=== PATIENT | female | born 1985 | race Caucasian/White ===

== ENCOUNTER 2016-03-24 08:32 | Emergency (ER) | payer OTHER ==
[2016-03-24 08:40] VITALS: BMI 27.4
--- NOTE | 2016-03-24 09:52 | PDOC ---
History of Present Illness - General Chief Complaint: Shortness of Breath Stated Complaint: CHEST PAIN, RT SIDE NUMBNESS Time Seen by Provider: 03/24/16 08:59 History Source: Patient Exam Limitations: No Limitations - History of Present Illness Initial Comments: 03/24/16 09:42 31-year-old female presents to the ED with multiple complaints including decreased appetite, decreased sleep, increased anxiety, bilateral leg pain and chest pressure over the past week intermittently. Patient has history of cervical cancer approximately 2 years ago and underwent chemotherapy but developed a DVT shortly thereafter being placed on subcutaneous injections but completed them about 1 year ago. Patient has now relocated to the [facility] from [place] 10 months ago and has not seen a physician since. Patient still has a Port-A-Cath in her right chest wall and is requesting a referral to a PMD and oncologist here. Patient has no complaints of shortness of breath, palpitations, lower extremity edema, sensory changes to the lower extremities, fever, cough, or weakness Timing/Duration: intermittent Severity: mild, moderate Associated Symptoms: reports: chest pain, loss of appetite. denies: shortness of breath Past History - Past Medical History Allergies/Adverse Reactions: Allergies Allergy/AdvReac Type Severity Reaction Status Date / Time No Known Allergies Allergy Verified 01/07/16 16:21 Home Medications: Ambulatory Orders NK [No Known Home Medication] 01/07/16 Cancer: Yes (Cervical Cancer) Other medical history: rt dvt - Reproductive History Is Patient Now?: No - Psycho/Social/Smoking Cessation Hx Anxiety: No Suicidal Ideation: No Smoking History: Never smoked Have you smoked in the past 12 months: No Information on smoking cessation initiated: No Hx Alcohol Use: No Drug/Substance Use Hx: No Substance Use Type: None Patient Lives Alone: No Review of Systems - Review of Systems Able to Perform ROS?: Yes Constitutional: Yes: Loss of Appetite HEENTM: No: Symptoms Reported Respiratory: No: Symptoms reported Cardiac (ROS): Yes: Chest Pain ABD/GI: Yes: Poor Appetite, Poor Fluid Intake : No: Symptoms Reported Musculoskeletal: Yes: Muscle Pain (bilateral calves) Integumentary: No: Symptoms Reported Neurological: No: Symptoms reported Psychiatric: Yes: Anxiety, Sleep Pattern Change, Change in Appetite Hematologic/Lymphatic: Yes: See HPI, Blood Clots *Physical Exam - Vital Signs Last Vital Signs Temp Pulse Resp BP Pulse Ox 97.8 F 73 18 135/70 98 03/24/16 08:36 03/24/16 08:36 03/24/16 08:36 03/24/16 08:36 03/24/16 09:25 - Physical Exam General Appearance: Yes: Nourished, Appropriately Dressed. No: Apparent Distress HEENT: positive: EOMI, ROCCO. negative: Pale Conjunctivae Neck: positive: Normal Thyroid, Supple Respiratory/Chest: positive: Lungs Clear, Normal Breath Sounds, Other (right single port Port-A-Cath site intact). negative: Respiratory Distress, Accessory Muscle Use Cardiovascular: positive: Regular Rhythm, Regular Rate. negative: Murmur Gastrointestinal/Abdominal: positive: Soft. negative: Tenderness Extremity: positive: Normal Capillary Refill, Normal Inspection, Normal Range of Motion. negative: Pedal Edema, Swelling, Calf Tenderness Integumentary: positive: Normal Color, Warm, Moist Neurologic: positive: Motor Strength 5/5 ( ambulatory) Heart Score/ECG Review - ECG Intrepretation Rhythm: Regular Rhythm (normal sinus rhythm 64, no acute findings) ED Treatment Course - LABORATORY CBC & Chemistry Diagram: 03/24/16 09:37 03/24/16 09:37 - RADIOLOGY Radiology Studies Ordered: Category Date Time Status DUPLEX VASCUL US-2LEGS [US] Stat Ultrasound 03/24/16 09:34 Ordered Medical Decision Making - Medical Decision Making 03/24/16 09:56 Patient with multiple complaints including chest pain, insomnia, decreased appetite, and bilateral lower extremity pain. Pt with history of cervical CVA, with DVT 1 year ago. Pt concerning for ACS/DVT/electrolyte imbalance. patient ordered for cardiac workup and duplex of bilateral lower extremities. 03/24/16 12:21 Laboratory Tests 03/24/16 09:37 Urine Urobilinogen Negative Ur Leukocyte Esterase 3+ H Urine HCG, Qual Negative Laboratory Tests 03/24/16 03/24/16 03/24/16 09:37 09:37 09:37 WBC 5.9 D Hgb 13.2 Hct 38.6 Neutrophils % 49.1 D Sodium 141 Potassium 4.3 Chloride 107 Carbon Dioxide 27 Anion Gap 7 L BUN 14 Creatinine 0.8 Random Glucose 91 Calcium 8.9 Magnesium 2.0 AST 17 ALT 26 D Creatine Kinase 167 Troponin I < 0.02 Lipase 366 Urine WBC 10 patient has no urinary complaints so will send urine culture. Duplex negative for DVT. Patient will be discharged home with referral for PCP and oncologist Dr. Rosa. *DC/Admit/Observation/Transfer Diagnosis at time of Disposition: Anxiety - Discharge Dispostion Disposition: HOME Condition at time of disposition: Good - Referrals Referrals: Scottie Rosa MD [Staff Physician] - Agustin Crain MD [Staff Physician] - - Patient Instructions Printed Discharge Instructions: DI for Anxiety -- Adult Additional Instructions: Please follow up with referred physicians. Please drink plenty of fluids and if your symptoms worsen please return to the ED.
[2016-03-24 09:53] LABS: URINE APPEARANCE CLOUDY; URINE BILIRUBIN NEGATIVE (NEGATIVE); URINE BLOOD NEGATIVE (NEGATIVE); URINE COLOR YELLOW; URINE GLUCOSE (UA) NEGATIVE (NEGATIVE); URINE KETONE NEGATIVE (NEGATIVE); URINE NITRITE NEGATIVE (NEGATIVE); URINE PROTEIN NEGATIVE (NEGATIVE); URINE UROBILINOGEN NEGATIVE E.U./dl (0.2-1.0)
[2016-03-24 09:55] LABS: BASOPHIL 0.5 % (0-2.0); EOSINOPHIL 2.5 % (0-4.5); MCH 30.9 pg (25.7-33.7); MCHC 34.2 g/dl (32.0-36.0); MEAN CELL VOLUME 90.5 fl (80-96); MEAN PLT VOLUME 7.9 fl (7.5-11.1); NEUTROPHILS 49.1 % (42.8-82.8); PLATELET COUNT 198 K/MM3 (134-434); RDW 13.2 % (11.6-15.6); WHITE BLOOD COUNT 5.9 K/mm3 (4.0-10.0)
[2016-03-24 10:08] LABS: URINE LEUK ESTERASE 3+ (NEGATIVE)
[2016-03-24 10:18] LABS: ALBUMIN 3.9 g/dl (3.4-5.0); ANION GAP 7 (8-16); BILIRUBIN,TOTAL 0.3 mg/dL (0.2-1.0); CALCIUM 8.9 mg/dL (8.5-10.1); CO2 27 mmol/L (21-32); CREATININE 0.8 mg/dL (0.55-1.02); GLUCOSE,RANDOM 91 mg/dL (74-106); SGOT/AST 17 U/L (15-37); SGPT/ALT 26 U/L (12-78); TOT PROT 7.2 g/dl (6.4-8.2)
[2016-03-24 10:22] LABS: ALK PHOS 66 U/L (45-117); TROPONIN I < 0.02 ng/ml (0.00-0.05)
[2016-03-24 10:48] LABS: URINE BACTERIA RARE /hpf (NONE SEEN); URINE MUCUS RARE; URINE RBC 5 /hpf (0-3); URINE WBC 10 /hpf (3-5)
[2016-03-24 12:55] VITALS: BP 109/75; PULSE 69; TEMP 98.1
--- NOTE | 2016-03-24 23:18 | EKG ---
Test Reason : Blood Pressure : / mmHG Vent. Rate : 064 BPM Atrial Rate : 064 BPM P-R Int : 156 ms QRS Dur : 084 ms QT Int : 412 ms P-R-T Axes : 025 018 031 degrees QTc Int : 425 ms NORMAL SINUS RHYTHM NORMAL ECG WHEN COMPARED WITH ECG OF 07-JAN-2016 16:21, NO SIGNIFICANT CHANGE WAS FOUND Confirmed by MARIAM COON MD ([id number]) on 03/24/2016 11:18:23 PM Referred By: Confirmed By:MARIAM COON MD
--- NOTE | 2016-03-31 17:50 | EKG ---
Test Reason : Blood Pressure : / mmHG Vent. Rate : 062 BPM Atrial Rate : 062 BPM P-R Int : 170 ms QRS Dur : 082 ms QT Int : 410 ms P-R-T Axes : 024 022 032 degrees QTc Int : 416 ms NORMAL SINUS RHYTHM NORMAL ECG WHEN COMPARED WITH ECG OF 24-MAR-2016 08:56, NO SIGNIFICANT CHANGE WAS FOUND Confirmed by MARIAM COON MD ([id number]) on 03/31/2016 5:50:02 PM Referred By: Confirmed By:MARIAM COON MD
== END 2016-03-24 12:56 | disposition home or self-care (01) ==
LOC: JER 08:32
DX: F41.9 Anxiety disorder, unspecified (principal)
CPT/HCPCS: 36415; 80053; 81003; 81015; 82550; 82553; 83690; 83735; 84484; 84703; 85025; 87086; 93005; 93010; 93970-TC; 99284-25

== ENCOUNTER 2016-07-28 20:27 | Emergency (ER) | payer OTHER ==
[2016-07-28 20:36] VITALS: BP 111/31; PULSE 84; TEMP 98.2; BMI 28.3
[2016-07-28] MEDS ORDERED: KETOROLAC TROMETHAMINE 60 MG/2 ML VIAL IM ONE (21:44)
--- NOTE | 2016-07-28 21:44 | PDOC ---
History of Present Illness - History of Present Illness Initial Comments: 07/28/16 21:35 CHIEF COMPLAINT: right leg pain HISTORY OF PRESENT ILLNESS: 31 yo F with hx of cervical cancer s/p radiation and chemotherapy presents to [facility] track with right sided hip and leg pain x "half a year." Patient describes the pain as cramping and worse when she walks. Patient denies any use of OCPs, denies any smoking. No recent travel or sick contacts. PAST MEDICAL HISTORY: cervical cancer s/p radiation/chemo FAMILY HISTORY: Denies SOCIAL HISTORY: Denies tobacco, alcohol, illicit drug use. SURGICAL HISTORY: Denies ALLERGIES: No known drug allergies REVIEW OF SYSTEMS General/Constitutional: Denies fever or chills. Denies weakness, weight change. HEENT: Denies change in vision. Denies ear pain or discharge. Denies sore throat. Cardiovascular: Denies chest pain or shortness of breath. Respiratory: Denies cough, wheezing, or hemoptysis. Gastrointestinal: Denies nausea, vomiting, diarrhea or constipation. Denies rectal bleeding. Genitourinary: Denies dysuria, frequency, or change in urination. Musculoskeletal: Cramping leg pain. Denies joint or muscle swelling or pain. Denies neck or back pain. Skin and breasts: Denies rash or easy bruising. Neurologic: Denies headache, vertigo, loss of consciousness, or loss of sensation. PHYSICAL EXAM General Appearance: Well-appearing, appropriately dressed. No apparent distress. HEENT: EOMI, PERRLA. No conjunctival pallor. No photophobia, scleral icterus. Respiratory/Chest: Lungs CTAB. Cardiovascular: RRR. S1, S2. Gastrointestinal/Abdominal: Normal bowel sounds. Abdomen soft, non-distended. No tenderness or rebound tenderness. No organomegaly, pulsatile mass, guarding , hernia, hepatomegaly, splenomegaly. Pelvic: External genitalia normal without lesions. Vaginal vault is clear without blood or discharge. Cervix is long and closed. No cervical motion tenderness. Uterus is nontender and normal in size. Adnexa are nontender and without masses. Lymphatic: No adenopathy, tenderness. Musculoskeletal/Extremities: Reproducible tenderness to R hip and thigh. No swelling, erythema, warmth. FROM of all extremities, normal capillary refill. Pelvis Stable. No CVA tenderness. No tenderness to extremities, pedal edema, swelling, erythema or deformity. Integumentary: Appropriate color, dry, warm. No cyanosis, erythema, jaundice or rash Neurologic: grade tamper II-XII intact. Fully oriented, alert. Appropriate mood/affect. Motor strength 5/5. No appreciable EOM palsy, facial droop or sensory deficit. <Trini Parisi - Last Filed: 07/28/16 22:12> <Catrina Vasquez - Last Filed: 07/29/16 02:01> - General Chief Complaint: Pain Stated Complaint: LEG PAIN Time Seen by Provider: 07/28/16 21:15 Past History - Past Medical History Cancer: Yes (Cervical Cancer) - Psycho/Social/Smoking Cessation Hx Anxiety: No Suicidal Ideation: No Smoking History: Never smoked Have you smoked in the past 12 months: No Information on smoking cessation initiated: No Hx Alcohol Use: No Drug/Substance Use Hx: No Substance Use Type: None <Trini Parisi - Last Filed: 07/28/16 22:12> <Catrina Vasquez - Last Filed: 07/29/16 02:01> - Past Medical History Allergies/Adverse Reactions: Allergies Allergy/AdvReac Type Severity Reaction Status Date / Time No Known Allergies Allergy Verified 07/28/16 20:32 Home Medications: Ambulatory Orders NK [No Known Home Medication] 01/07/16 *Physical Exam - Vital Signs Last Vital Signs Temp Pulse Resp BP Pulse Ox 98.2 F 84 18 111/31 98 07/28/16 20:33 07/28/16 20:33 07/28/16 20:33 07/28/16 20:33 07/28/16 20:33 <Trini Parisi - Last Filed: 07/28/16 22:12> - Vital Signs Last Vital Signs Temp Pulse Resp BP Pulse Ox 98.2 F 84 18 111/31 98 07/28/16 20:33 07/28/16 20:33 07/28/16 20:33 07/28/16 20:33 07/28/16 20:33 <Catrina Vasquez - Last Filed: 07/29/16 02:01> ED Treatment Course - ADDITIONAL ORDERS Additional order review: Laboratory Results 07/28/16 21:22 Urine HCG, Qual Negative - Medications Given in the ED: ED Medications Discontinued Medications Generic Name Dose Route Start Last Admin Trade Name Freq PRN Reason Stop Dose Admin Ketorolac Tromethamine 60 mg 07/28/16 21:44 07/28/16 22:11 Toradol Injection - IM 07/28/16 21:45 60 mg ONCE ONE Administration <Catrina Vasquez - Last Filed: 07/29/16 02:01> Medical Decision Making - Medical Decision Making 07/28/16 22:09 31 yo F with hx of "abdominal tumor" s/p radiation therapy presents to fast track with right sided hip and leg pain x "half a year." -Upreg -60 mg Toradol IM Will transfer to main ED for further evaluation. <Trini Parisi - Last Filed: 07/28/16 22:12> - Medical Decision Making 07/29/16 02:00 duplex doppler of right leg was negative for any DVT ,pt given a copy of her ultrasound report and will follow up with her primary physician <Catrina Vasquez - Last Filed: 07/29/16 02:01> *DC/Admit/Observation/Transfer <Trini Parisi - Last Filed: 07/28/16 22:12> <Catrina Vasquez - Last Filed: 07/29/16 02:01> Diagnosis at time of Disposition: Leg pain Qualifiers: Laterality: right Qualified Code(s): M79.604 - Pain in right leg - Discharge Dispostion Disposition: HOME Condition at time of disposition: Stable - Patient Instructions Printed Discharge Instructions: DI for Leg Pain Additional Instructions: please followup with your regular physician
[2016-07-28] MEDS ORDERED: KETOROLAC TROMETHAMINE 60 MG/2 ML VIAL ONE (22:00)
== END 2016-07-28 23:47 | disposition home or self-care (01) ==
LOC: JER 20:27
PROC: 3E0233Z Introduction of Anti-inflammatory into Muscle, Percutaneous Approach (ICD-10-PCS; principal; 2016-07-28)
DX: M79.604 Pain in right leg (principal)
CPT/HCPCS: 84703; 93971-TC; 96372; 99281-25

== ENCOUNTER 2016-08-16 08:20 | Emergency (ER) | payer OTHER ==
[2016-08-16] MEDS ORDERED: SODIUM CHLORIDE 1,000 ML IV STA (08:26)
[2016-08-16 08:27] VITALS: TEMP 98.1; BMI 28.3
[2016-08-16] MEDS ORDERED: morphine CARPU-JECT 4 MG/1 ML DISP.SYRIN IVPUSH ONE ×2 (08:28→13:29)
[2016-08-16] MEDS ORDERED: ONDANSETRON 4 MG/2 ML VIAL IVPUSH ONE (08:28)
[2016-08-16] MEDS ORDERED: ONDANSETRON 4 MG/2 ML VIAL ONE (08:45)
[2016-08-16] MEDS ORDERED: morphine CARPU-JECT 2 MG/1 ML DISP.SYRIN ONE ×2 (08:45→13:32)
--- NOTE | 2016-08-16 08:45 | PDOC ---
History of Present Illness - General Chief Complaint: Pain Stated Complaint: ABDOMINAL PAIN Time Seen by Provider: 08/16/16 08:25 History Source: Patient - History of Present Illness Timing/Duration: reports: constant, getting worse Quality: reports: severe Pain Radiation: reports: RUQ, LUQ, RLQ Past History - Past Medical History Allergies/Adverse Reactions: Allergies Allergy/AdvReac Type Severity Reaction Status Date / Time No Known Allergies Allergy Verified 08/16/16 08:25 Home Medications: Ambulatory Orders Ciprofloxacin HCl [Cipro] 500 mg PO BID #14 tablet 08/16/16 Metronidazole [Flagyl -] 500 mg PO Q8H #21 tablet 08/16/16 Tramadol HCl 50 mg PO Q6H #20 tablet MDD 200 mg 08/16/16 Cancer: Yes (Cervical Cancer) - Psycho/Social/Smoking Cessation Hx Anxiety: No Suicidal Ideation: No Smoking History: Never smoked Have you smoked in the past 12 months: No Information on smoking cessation initiated: No Hx Alcohol Use: No Drug/Substance Use Hx: No Substance Use Type: None Review of Systems - Review of Systems Constitutional: No: Chills, Fever Respiratory: No: Shortness of Breath Cardiac (ROS): No: Chest Pain ABD/GI: Yes: Nausea. No: Vomiting : Yes: Flank Pain. No: Dysuria, Hematuria Musculoskeletal: No: Back Pain *Physical Exam - Vital Signs Last Vital Signs Temp Pulse Resp BP Pulse Ox 98.1 F 84 18 102/71 100 08/16/16 08:25 08/16/16 08:25 08/16/16 08:25 08/16/16 08:25 08/16/16 08:25 - Physical Exam General Appearance: Yes: Appropriately Dressed, Moderate Distress HEENT: positive: Normal Voice Neck: positive: Supple Respiratory/Chest: positive: Lungs Clear, Normal Breath Sounds. negative: Respiratory Distress Cardiovascular: positive: Regular Rate, S1, S2 Gastrointestinal/Abdominal: positive: Normal Bowel Sounds, Tender (to RUQ/RLQ and LUQ), Soft. negative: Distended, Guarding, Rebound Musculoskeletal: negative: CVA Tenderness Integumentary: positive: Dry, Warm Neurologic: positive: Fully Oriented, Alert, Normal Mood/Affect ED Treatment Course - LABORATORY CBC & Chemistry Diagram: 08/16/16 09:00 08/16/16 09:00 Medical Decision Making - Medical Decision Making 08/16/16 08:31 31 yo F, history of cervical cancer status post radiation and chemotherapy in [place] 2 years ago, DVT, no longer on blood thinners, status post surgery for ectopic and ruptured hemorrhagic cyst, presents with severe pain in the left upper quadrant that started at 1 AM today and has since worsened and now radiates to RUQ and RLQ. Also reports nausea, no vomiting, change in BM, dysuria , hematuria, abnl vag bleed, f/c. No h/o renal stone see exam Severe abd pain this am Diffuse ttp but most notably to L flank R/o renal colic vs yaneli vs appy -pain control -zofran -IVF -labs -?CT vs US 08/16/16 08:48 08/16/16 12:18 Enterocolitis to distal small bowel and distal sigmoid on CT, ?infxn vs inflam vs radiation related. Pt has no neutropenia or fever to suggest typhlitis at this time. Labs wnl. Pt reports feeling sig better. Offered admission or at least OBs stay which pt declines as she is feeling better and states she would prefer to go home with po abx. Will give dose of IV in ED and po challenge prior to discharge 08/16/16 13:21 08/16/16 13:34 08/16/16 16:11 08/16/16 17:01 Pt s/p IV abx and feels well. Able to xander po. Stable for discharge w/ strict return precautions *DC/Admit/Observation/Transfer Diagnosis at time of Disposition: Enterocolitis - Discharge Dispostion Disposition: HOME Condition at time of disposition: Improved - Prescriptions Prescriptions: Ciprofloxacin HCl [Cipro] 500 mg PO BID #14 tablet Metronidazole [Flagyl -] 500 mg PO Q8H #21 tablet Tramadol HCl 50 mg PO Q6H #20 tablet MDD 200 mg - Referrals Referrals: Roderick Vicente MD [Staff Physician] - - Patient Instructions Printed Discharge Instructions: DI for Colitis Additional Instructions: Take medications as directed and return to ER immediately for worsening of symptoms. Follow-up with Dr. Vicente in clinic Print Language: CROATIAN
[2016-08-16 09:04] VITALS: BP 119/84; PULSE 87
[2016-08-16] MEDS ORDERED: KETOROLAC TROMETHAMINE 30 MG/1 ML VIAL IVPUSH ONE (09:04)
[2016-08-16] MEDS ORDERED: KETOROLAC TROMETHAMINE 30 MG/1 ML VIAL ONE (09:06)
[2016-08-16 09:10] LABS: BASOPHIL 0.5 % (0-2.0); EOSINOPHIL 1.6 % (0-4.5); MCH 30.8 pg (25.7-33.7); MCHC 34.5 g/dl (32.0-36.0); MEAN CELL VOLUME 89.3 fl (80-96); NEUTROPHILS 62.7 % (42.8-82.8); PLATELET COUNT 179 K/MM3 (134-434); RDW 13.1 % (11.6-15.6); WHITE BLOOD COUNT 7.8 K/mm3 (4.0-10.0)
[2016-08-16 09:21] LABS: URINE APPEARANCE CLOUDY; URINE BILIRUBIN NEGATIVE (NEGATIVE); URINE BLOOD NEGATIVE (NEGATIVE); URINE COLOR YELLOW; URINE GLUCOSE (UA) NEGATIVE (NEGATIVE); URINE KETONE NEGATIVE (NEGATIVE); URINE NITRITE NEGATIVE (NEGATIVE); URINE PROTEIN NEGATIVE (NEGATIVE); URINE UROBILINOGEN NEGATIVE E.U./dl (0.2-1.0)
[2016-08-16 09:31] LABS: ALBUMIN 3.9 g/dl (3.4-5.0); ALK PHOS 70 U/L (45-117); ANION GAP 8 (8-16); BILIRUBIN,TOTAL 0.3 mg/dL (0.2-1.0); CALCIUM 8.7 mg/dL (8.5-10.1); CO2 26 mmol/L (21-32); CREATININE 0.9 mg/dL (0.55-1.02); GLUCOSE,RANDOM 105 mg/dL (74-106); SGOT/AST 17 U/L (15-37); SGPT/ALT 28 U/L (12-78); TOT PROT 7.3 g/dl (6.4-8.2)
[2016-08-16 09:32] LABS: URINE LEUK ESTERASE 1+ (NEGATIVE)
[2016-08-16 09:33] LABS: URINE BACTERIA RARE /hpf (NONE SEEN); URINE MUCUS RARE; URINE RBC 1 /hpf (0-3); URINE WBC 5 /hpf (3-5)
[2016-08-16] MEDS ORDERED: METRONIDAZOLE 500 MG PREMIXED 100 ML IVPB ONE ×2 (13:03→13:32)
[2016-08-16] MEDS ORDERED: CEFEPIME HCL 2 GM VIAL (RESTRICTED TO ID) IVPB ONE (13:03)
[2016-08-16] MEDS ORDERED: CEFEPIME 2 GM in DEXTROSE 5%-WATER - 100 ML IVPB ONE (16:00)
== END 2016-08-16 17:28 | disposition home or self-care (01) ==
LOC: JER 08:20
PROC: 3E03329 Introduction of Other Anti-infective into Peripheral Vein, Percutaneous Approach (ICD-10-PCS; principal; 2016-08-16)
PROC: 3E03329 Introduction of Other Anti-infective into Peripheral Vein, Percutaneous Approach (ICD-10-PCS; 2016-08-16)
PROC: 3E033NZ Introduction of Analgesics, Hypnotics, Sedatives into Peripheral Vein, Percutaneous Approach (ICD-10-PCS; 2016-08-16)
PROC: 3E0333Z Introduction of Anti-inflammatory into Peripheral Vein, Percutaneous Approach (ICD-10-PCS; 2016-08-16)
PROC: 3E033GC Introduction of Other Therapeutic Substance into Peripheral Vein, Percutaneous Approach (ICD-10-PCS; 2016-08-16)
DX: K52.9 Noninfective gastroenteritis and colitis, unspecified (principal); R11.0 Nausea
CPT/HCPCS: 36415; 74177-TC; 80053; 81003; 81015; 83690; 84703; 85025; 86850; 86900; 86901; 96365; 96367; 96374; 96375; 99282-25

== ENCOUNTER → 2016-09-21 | Emergency (ER) | payer OTHER ==
[~2016-09-21] MED LIST: SODIUM CHLORIDE 1,000 ML IV ONE
[2016-09-21 11:52] VITALS: BMI 30.1
[2016-09-21 13:17] LABS: BASOPHIL 0.4 % (0-2.0); EOSINOPHIL 1.1 % (0-4.5); MCH 30.8 pg (25.7-33.7); MCHC 34.4 g/dl (32.0-36.0); MEAN CELL VOLUME 89.5 fl (80-96); MEAN PLT VOLUME 7.9 fl (7.5-11.1); NEUTROPHILS 66.6 % (42.8-82.8); PLATELET COUNT 185 K/MM3 (134-434); RDW 13.3 % (11.6-15.6); URINE APPEARANCE CLEAR; URINE BILIRUBIN NEGATIVE (NEGATIVE); URINE BLOOD NEGATIVE (NEGATIVE); URINE COLOR LTYELLOW; URINE GLUCOSE (UA) NEGATIVE (NEGATIVE); URINE KETONE NEGATIVE (NEGATIVE); URINE LEUK ESTERASE NEGATIVE (NEGATIVE); URINE NITRITE NEGATIVE (NEGATIVE); URINE PROTEIN NEGATIVE (NEGATIVE); URINE UROBILINOGEN NEGATIVE mg/dL (0.2-1.0); WHITE BLOOD COUNT 5.9 K/mm3 (4.0-10.0)
[2016-09-21 13:40] LABS: ALK PHOS 71 U/L (45-117); ANION GAP 8 (8-16); BILIRUBIN,TOTAL 0.4 mg/dL (0.2-1.0); CALCIUM 8.9 mg/dL (8.5-10.1); CO2 27 mmol/L (21-32); CREATININE 0.9 mg/dL (0.55-1.02); GLUCOSE,RANDOM 124 mg/dL (74-106); SGOT/AST 15 U/L (15-37); SGPT/ALT 27 U/L (12-78)
--- NOTE | 2016-09-21 14:17 | PDOC ---
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 Patient was having an emotional conversation, developed palpitations with chest tightness and throat closing sensation and lightheadedness. The episode lasted 30-45 minutes, now resolved. In route, patient did have an episode of fecal incontinence, she denied any back pain or other neurological issues. At baseline has unlimited exercise tolerance, but yesterday noted some right upper quadrant/right chest discomfort with ambulating and it has also since been positional, not necessarily exertional. No cough or fevers or shortness of breath. No history of panic attacks. - Physicial Exam PE: 09/21/16 14:13 Vital signs stable, heart rate 100 at triage but currently 70s lying in stretcher. No acute distress, speaking full sentences. Cardiopulmonary exam is normal abd benign, no masses neuro intact, full strength x4 mood appropriate - Medical Decision Making 09/21/16 14:18 Patient seen and evaluated with the resident. 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 Presentation does seem most consistent with a panic attack, given her history of malignancy and unknown current status (has not had evaluation since her chemotherapy finished 21 months ago), would rule out PE in light of the register tachycardia at triage. Check labs including troponin CTA chest Symptoms have resolved, no need for anxiolytic at this time Reassess 09/21/16 17:04 w/u negative including PE. likely panic attack, remains asx and well appearing, agrees with d/c plan, understands return criteria.
[2016-09-21 14:34] LABS: CPK 156 IU/L (26-192); TROPONIN I < 0.02 ng/ml (0.00-0.05)
--- NOTE | 2016-09-21 17:05 | PDOC ---
History of Present Illness - General Chief Complaint: Shortness of Breath Stated Complaint: SOB Time Seen by Provider: 09/21/16 12:19 - History of Present Illness Initial Comments: 09/21/16 17:20 31 yo F with h/o ovarian ca. s/p radiation and chemo, and recent dx. of enterocolitis who presents with SOB. Pt. reports episode of SOB, SUAREZ, and confusion 90 minutes prior to arrival. She states that she was sitting down and arguing with her spouse when she started to develop diffuse chest pain/ tightness and asx. symptoms. She denies cough, hemoptysis, fevers/chills, N/V, vision change, syncope, palpitations, abdominal complaints, or urinary complaints. Denies medication use. Denies recent traveling, extended traveling, or OCP use. Denies alcohol or illicit drug use. Past History - Past Medical History Allergies/Adverse Reactions: Allergies Allergy/AdvReac Type Severity Reaction Status Date / Time No Known Allergies Allergy Verified 09/21/16 11:58 Cancer: Yes (Cervical Cancer) - Psycho/Social/Smoking Cessation Hx Anxiety: No Suicidal Ideation: No Smoking History: Never smoked Have you smoked in the past 12 months: No Information on smoking cessation initiated: No Hx Alcohol Use: No Drug/Substance Use Hx: No Substance Use Type: None Review of Systems - Review of Systems Comments:: 09/21/16 18:00 GENERAL/CONSTITUTIONAL: No fever or chills. No weakness. HEAD, EYES, EARS, NOSE AND THROAT: No change in vision. No ear pain or discharge. No sore throat. CARDIOVASCULAR: No chest pain or shortness of breath RESPIRATORY: No cough, wheezing, or hemoptysis. GASTROINTESTINAL: No nausea, vomiting, diarrhea or constipation. GENITOURINARY: No dysuria, frequency, or change in urination. MUSCULOSKELETAL: No joint or muscle swelling or pain. No neck or back pain. SKIN: No rash NEUROLOGIC:+ headache. No vertigo, loss of consciousness, or change in strength/sensation. ENDOCRINE: No increased thirst. No abnormal weight change HEMATOLOGIC/LYMPHATIC: No anemia, easy bleeding, or history of blood clots. ALLERGIC/IMMUNOLOGIC: No hives or skin allergy. 09/21/16 18:00 *Physical Exam - Vital Signs Last Vital Signs Temp Pulse Resp BP Pulse Ox 98.4 F 100 H 20 121/84 99 09/21/16 11:48 09/21/16 11:48 09/21/16 11:48 09/21/16 11:48 09/21/16 11:53 - Physical Exam Comments: 09/21/16 18:01 GENERAL: Awake, alert, and fully oriented, in no acute distress HEAD: No signs of trauma, normocephalic, atraumatic EYES: PERRLA, EOMI, sclera anicteric, conjunctiva clear ENT: Auricles normal inspection, hearing grossly normal, nares patent, oropharynx clear without exudates. Moist mucosa NECK: Normal ROM, supple, no lymphadenopathy, JVD, or masses LUNGS: No distress, speaks full sentences, clear to auscultation bilaterally HEART: Regular rate and rhythm, normal S1 and S2, no murmurs, rubs or gallops, peripheral pulses normal and equal bilaterally. ABDOMEN: + RUQ tenderness. Soft, normoactive bowel sounds. No guarding, no rebound. No masses EXTREMITIES: Normal inspection, Normal range of motion, no edema. No clubbing or cyanosis. NEUROLOGICAL: Cranial nerves II through XII grossly intact. Normal speech, normal gait, no focal sensorimotor deficits SKIN: Warm, Dry, normal turgor, no rashes or lesions noted. Heart Score/ECG Review - Electrocardiogram EKG: Normal - ECG Intrepretation Rhythm: Regular Rhythm - [place]: Normal - P and IL Prominent R with upright T in V1 (true posterior ID): No Delta Wave(s) Present: No WPW: No - QRS Poor R Wave Progression: No Q Wave Present: No - ST and T Early Repolarization: No Non Specific ST-T Wave changes: No - ECG Impressions Normal ECG: Yes ED Treatment Course - LABORATORY CBC & Chemistry Diagram: 09/21/16 13:10 09/21/16 13:10 - ADDITIONAL ORDERS Additional order review: Laboratory Results 09/21/16 09/21/16 13:10 13:10 Sodium 140 Potassium 3.7 Chloride 105 Carbon Dioxide 27 Anion Gap 8 BUN 16 Creatinine 0.9 Creat Clearance w eGFR > 60 Random Glucose 124 H Calcium 8.9 Total Bilirubin 0.4 D AST 15 ALT 27 Alkaline Phosphatase 71 Creatine Kinase 156 Creatine Kinase Index 0.6 CK-MB (CK-2) < 1.000 Troponin I < 0.02 Total Protein 7.0 Albumin 4.0 Lipase 193 Urine Color Ltyellow Urine Appearance Clear Urine pH 5.0 Urine Protein Negative Urine Glucose (UA) Negative Urine Ketones Negative Urine Blood Negative Urine Nitrite Negative Urine Bilirubin Negative Urine Urobilinogen Negative Ur Leukocyte Esterase Negative Urine HCG, Qual Negative 09/21/16 13:10 RBC 4.39 MCV 89.5 MCHC 34.4 RDW 13.3 MPV 7.9 Neutrophils % 66.6 Lymphocytes % 24.6 Monocytes % 7.3 Eosinophils % 1.1 Basophils % 0.4 - RADIOLOGY Radiology Studies Ordered: Category Date Time Status ABDOMEN US -LIMITED [US] Stat Ultrasound 09/21/16 12:55 Completed Radiograph Interpretation: 09/21/16 18:12 Za Eisenberg Name: MARI[facility] DEPARTMENT OF RADIOLOGY Phys: Jesse Fenton MD : 1985 Age: 31 Sex: F [facility] Acct: [id number] Loc: [address] Exam Date: 09/21/16 Status: [facility] [place] [address] Unit Number: [id number] EXAM#: TYPE/EXAM: RESULT: [id number] CT/CHEST CTA Shortness of breath. Chest pain. CT scan of the chest following intravenous contrast. A post intravenous contrast CT angiogram of the chest was performed utilizing pulmonary embolus protocol. Coronal/ sagittal reconstruction images were obtained. 95 cc of Omnipaque 350 was intravenously injected Compared to prior CT scan of the chest dated 01/07/2016 No gross filling defect is seen within the main pulmonary artery and its proximal branches. The thoracic and visualized portion of the upper abdominal aorta is normally enhanced without evidence of aneurysmal dilatation or dissection. The heart is within normal limits in size. No gross mediastinal or hilar enlarged lymph nodes are identified. Previously visualized approximately 6 mm pulmonary nodule in the right lower lobe, laterally is again seen without interval change. The rest of the lung is clear. No pneumothorax or pleural effusion are identified. Included portion of the upper abdomen appears unremarkable with heterogeneous enhancement of the spleen likely due to rapid intravenous contrast injection. Visualized osseous structures appear intact IMPRESSION: Stable examination without gross interval change. There is no gross evidence of a pulmonary embolus within the main pulmonary artery and its proximal branches, bilaterally. Stable approximately 6 mm right lower lobe pulmonary nodule without interval change. 09/21/16 18:14 Za Eisenberg Name: WILLIAMSMARIAA DEPARTMENT OF RADIOLOGY Phys: CesarAlexander RESIDENT : 1985 Age: 31 Sex: F [facility] Acct: [id number] Loc: [facility] [facility] Exam Date: 09/21/16 Status: [facility] [id number] Unit Number: [id number] EXAM#: TYPE/EXAM: RESULT: [id number] US/ABDOMEN US -LIMITED HISTORY PROVIDED: Right upper quadrant pain. Real time examination of the abdomen demonstrates the following: The gallbladder is largely contracted. No calculi are identified. There is no evidence of intra or extrahepatic biliary duct dilatation. The liver is normal in size. It is hyperechoic in texture consistent with diffuse fatty infiltration. No discrete intrahepatic masses are identified. The pancreas is normal in size and texture with no pancreatic masses identified. There is no evidence of hydronephrosis or acute abnormalities of the right kidney. There is no evidence of AAA. The IVC is patent. IMPRESSION: 1. Contracted gallbladder with no evidence of cholelithiasis. 2. Mild diffuse fatty infiltration of the liver. - Medications Given in the ED: ED Medications Discontinued Medications Generic Name Dose Route Start Last Admin Trade Name Freq PRN Reason Stop Dose Admin Sodium Chloride 1,000 mls @ 1,000 mls/hr 09/21/16 13:48 09/21/16 14:44 Normal Saline - IV 09/21/16 14:47 1,000 mls/hr ONCE ONE Administration Medical Decision Making - Medical Decision Making 31 yo F with h/o ovarian ca. s/p chemo/radiation who presents with SOB. Pt. reports SOB, chest tightness, SUAREZ, lightheadedness, and confusion following argument with spouse. Pt. is moderate risk of PE given recent h/o cancer, and symptomatology, despite hemodynamic stability. Pt. is non toxic appearing with low suspicion for pneumonia and benign pulmonary exam. Low cardiac risk factors. DDx: Panic attack , PE, pneumonia, ACS/ID, Syncope ED Course: CTA: Stable examination without gross interval change. There is no gross evidence of a pulmonary embolus within the main pulmonary artery and its proximal branches, bilaterally. Stable approximately 6 mm right lower lobe pulmonary nodule without interval change. 09/21/16 18:15 RUQ U/S: 1. Contracted gallbladder with no evidence of cholelithiasis. 2. Mild diffuse fatty infiltration of the liver. EKG : Unremarkable 09/21/16 18:17 CBC, CMP,UA: unremarkable NS 1L *DC/Admit/Observation/Transfer Diagnosis at time of Disposition: Shortness of breath, Panic attack - Discharge Dispostion Disposition: HOME Condition at time of disposition: Improved Admit: No - Referrals Referrals: Alysa Ellis [Primary Care Provider] - Waqar Storm MD [Staff Physician] - - Patient Instructions Printed Discharge Instructions: Anxiety and Panic Attacks (Alternative Therapy) , DI for Panic Disorder Additional Instructions: Return to ED if you experience any worsening symptoms, fainting, fevers/chills, severe abdominal pain. Please follow up with your primary care provider Print Language: TURKMEN - Attestations Physician Attestion: 09/21/16 17:03 I, Dr. Alexander Guerrero, attest that this document has been prepared under my direction and personally reviewed by me in its entirety. I further attest, that it accurately reflects all work, treatment, procedures and medical decision -making performed by me.
--- NOTE | 2016-09-21 17:43 | EKG ---
Test Reason : Blood Pressure : / mmHG Vent. Rate : 060 BPM Atrial Rate : 060 BPM P-R Int : 154 ms QRS Dur : 082 ms QT Int : 406 ms P-R-T Axes : 024 027 035 degrees QTc Int : 406 ms NORMAL SINUS RHYTHM NORMAL ECG WHEN COMPARED WITH ECG OF 24-MAR-2016 10:34, NO SIGNIFICANT CHANGE WAS FOUND Confirmed by MARIAM COON MD ([id number]) on 09/21/2016 5:43:06 PM Referred By: Confirmed By:MARIAM COON MD
[2016-09-21 18:07] VITALS: BP 121/72; PULSE 78; TEMP 98.7
== END | disposition home or self-care (01) ==
LOC: JER 11:43
PROC: 3E0337Z Introduction of Electrolytic and Water Balance Substance into Peripheral Vein, Percutaneous Approach (ICD-10-PCS; principal; 2016-09-21)
DX: F41.0 Panic disorder [episodic paroxysmal anxiety] (principal); Z85.43 Personal history of malignant neoplasm of ovary
CPT/HCPCS: 36415; 71275-TC; 76705-TC; 80053; 81003; 83690; 84484; 84703; 85025; 93005; 93010; 96360; 99283-25

== ENCOUNTER 2017-01-11 09:18 | Emergency (ER) | payer OTHER ==
--- NOTE | 2017-01-11 09:28 | PDOC ---
History of Present Illness - General History Source: Patient Exam Limitations: No Limitations - History of Present Illness Initial Comments: 01/11/17 09:57 The patient is a 31 year old female with a significant PMH of ovarian cancer s/ p radiation & chemotherapy and recent enterocolitis who presents to the emergency department with 1 month of worsening flank pain and 1 day of rectal bleeding. The patient describes the flank pain as a sharp pain intermittently localized in the right flank. She reports her flank pain is aggravated by torso movement or deep inspiration. The patient reports her flank pain has become significantly worse over the past 3 days. She notes associated rectal bleeding beginning yesterday and endorse multiple episodes of rectal bleeding since then. The patient denies chest pain, shortness of breath, headache and dizziness. Denies fever, chills, nausea, vomit, diarrhea and constipation. Denies dysuria, frequency, urgency and hematuria. Allergies: NKA Past surgical history: None reported. Social history: No reported cigarette, alcohol, or drug use. <Vlad Sahu - Last Filed: 01/11/17 10:20> <Valencia Hernandez - Last Filed: 01/11/17 14:31> - General Chief Complaint: Pain, Acute Stated Complaint: ABD PAIN Time Seen by Provider: 01/11/17 09:27 Past History <Vlad Sahu - Last Filed: 01/11/17 10:20> - Past Medical History Cancer: Yes (Cervical Cancer) - Suicide/Smoking/Psychosocial Hx Smoking History: Never smoked Have you smoked in the past 12 months: No Hx Alcohol Use: No Drug/Substance Use Hx: No Substance Use Type: None <Valencia Hernandez - Last Filed: 01/11/17 14:31> - Past Medical History Allergies/Adverse Reactions: Allergies Allergy/AdvReac Type Severity Reaction Status Date / Time No Known Allergies Allergy Verified 01/11/17 09:51 Review of Systems - Review of Systems Able to Perform ROS?: Yes Comments:: 01/11/17 09:58 GENERAL/CONSTITUTIONAL: No fever or chills. No weakness. HEAD, EYES, EARS, NOSE AND THROAT: No change in vision. No ear pain or discharge. No sore throat. CARDIOVASCULAR: No chest pain or shortness of breath. RESPIRATORY: No cough, wheezing, or hemoptysis. GASTROINTESTINAL: (+) Rectal bleeding. No nausea, vomiting, diarrhea or constipation. GENITOURINARY: No dysuria, frequency, or change in urination. MUSCULOSKELETAL: (+) Right flank pain. No joint pain. No neck pain. SKIN: No rash NEUROLOGIC: No headache, vertigo, loss of consciousness, or change in strength/ sensation. ENDOCRINE: No increased thirst. No abnormal weight change. HEMATOLOGIC/LYMPHATIC: No anemia, easy bleeding, or history of blood clots. ALLERGIC/IMMUNOLOGIC: No hives or skin allergy. <Vlad Sahu - Last Filed: 01/11/17 10:20> *Physical Exam - Vital Signs Last Vital Signs Temp Pulse Resp BP Pulse Ox 97.7 F 70 18 107/70 100 01/11/17 09:20 01/11/17 09:20 01/11/17 09:20 01/11/17 09:20 01/11/17 09:20 - Physical Exam Comments: 01/11/17 09:58 GENERAL: (+) Uncomfortable appearing. Awake, alert, and fully oriented. HEAD: No signs of trauma EYES: PERRLA, EOMI, sclera anicteric, conjunctiva clear ENT: Auricles normal inspection, hearing grossly normal, nares patent, oropharynx clear without exudates. Moist mucosa NECK: Normal ROM, supple, no lymphadenopathy, JVD, or masses LUNGS: Breath sounds equal, clear to auscultation bilaterally. No wheezes, and no crackles HEART: Regular rate and rhythm, normal S1 and S2, no murmurs, rubs or gallops ABDOMEN: (+) Diffusely tender. (+) Voluntary guarding. Soft, normoactive bowel sounds. No rebound. No masses BACK: (+) CVA tenderness. EXTREMITIES: Normal range of motion, no edema. No clubbing or cyanosis. No cords, erythema, or tenderness NEUROLOGICAL: Cranial nerves II through XII grossly intact. Normal speech, normal gait SKIN: Warm, Dry, normal turgor, no rashes or lesions noted. <Vlad Sahu - Last Filed: 01/11/17 10:20> ED Treatment Course - LABORATORY CBC & Chemistry Diagram: 01/11/17 09:48 01/11/17 09:48 - Medications Given in the ED: ED Medications Discontinued Medications Generic Name Dose Route Start Last Admin Trade Name Freq PRN Reason Stop Dose Admin Morphine Sulfate 6 mg 01/11/17 09:32 01/11/17 09:48 Morphine Injection - IVPUSH 01/11/17 09:33 6 mg ONCE ONE Administration <Vlad Sahu - Last Filed: 01/11/17 10:20> - LABORATORY CBC & Chemistry Diagram: 01/11/17 09:48 01/11/17 09:48 <Valencia Hernandez - Last Filed: 01/11/17 14:31> Medical Decision Making - Medical Decision Making 01/11/17 14:27 Pt presents to the ED complaining of abdominal pain. Multiple visits to the ED for similar complaints, does not follow up with primary care doctors, has been given multiple follow up appointments. Initial concern for SBO, diverticulititis, malignancy. CT shows no acute change. Labs and UA are negative except for very mild WBC elevation. Will discharge home with instructions to follow up with PMD. <Valencia Hernandez - Last Filed: 01/11/17 14:31> *DC/Admit/Observation/Transfer - Attestations Scribe Attestion: 01/11/17 09:58 Documentation prepared by Vlad Sahu, acting as medical director occupational health for Valencia Hernandez MD. <Vlad Sahu - Last Filed: 01/11/17 10:20> - Discharge Dispostion Admit: No <Valencia Hernandez - Last Filed: 01/11/17 14:31> Diagnosis at time of Disposition: Abdominal pain Qualifiers: Abdominal location: generalized Qualified Code(s): R10.84 - Generalized abdominal pain - Discharge Dispostion Disposition: HOME Condition at time of disposition: Good - Referrals Referrals: Milton Bradshaw MD [Staff Physician] - - Patient Instructions Printed Discharge Instructions: DI for Abdominal Pain-Adult Additional Instructions: Your cat scan was negative--we did not find a reason for your pain. You should return to the ED for worsening pain, pain with fever, bloody vomit or stool. Make sure that you follow up with a primary care physician--you need testing that cannot be done from the ED.
[2017-01-11] MEDS ORDERED: morphine CARPU-JECT 4 MG/1 ML DISP.SYRIN IVPUSH ONE (09:32)
[2017-01-11] MEDS ORDERED: morphine CARPU-JECT 10 MG/1 ML DISP.SYRIN ONE (09:38)
[2017-01-11 09:52] VITALS: BP 107/70; PULSE 70; TEMP 97.7; BMI 26.5
[2017-01-11 09:56] LABS: EOSINOPHIL 0.8 % (0-4.5); MCH 29.7 pg (25.7-33.7); MEAN CELL VOLUME 89.8 fl (80-96); MEAN PLT VOLUME 7.8 fl (7.5-11.1); NEUTROPHILS 77.6 % (42.8-82.8); PLATELET COUNT 205 K/MM3 (134-434); RDW 13.3 % (11.6-15.6); WHITE BLOOD COUNT 12.6 K/mm3 (4.0-10.0)
[2017-01-11 10:09] LABS: INR 1.06 (0.82-1.09)
[2017-01-11] MEDS ORDERED: KETOROLAC TROMETHAMINE 30 MG/1 ML VIAL IVPUSH ONE (10:23)
[2017-01-11 10:26] LABS: ALBUMIN 4.2 g/dl (3.4-5.0); ANION GAP 7 (8-16); BILIRUBIN,TOTAL 0.2 mg/dL (0.2-1.0); CALCIUM 8.5 mg/dL (8.5-10.1); CO2 25 mmol/L (21-32); CREATININE 0.9 mg/dL (0.55-1.02); GLUCOSE,RANDOM 110 mg/dL (74-106); SGOT/AST 15 U/L (15-37); SGPT/ALT 29 U/L (12-78); TOT PROT 7.7 g/dl (6.4-8.2)
[2017-01-11 10:27] LABS: ALK PHOS 71 U/L (45-117)
[2017-01-11 13:54] LABS: URINE APPEARANCE CLEAR; URINE BILIRUBIN NEGATIVE (NEGATIVE); URINE BLOOD NEGATIVE (NEGATIVE); URINE COLOR LTYELLOW; URINE GLUCOSE (UA) NEGATIVE (NEGATIVE); URINE KETONE NEGATIVE (NEGATIVE); URINE NITRITE NEGATIVE (NEGATIVE); URINE PROTEIN NEGATIVE (NEGATIVE); URINE UROBILINOGEN NEGATIVE mg/dL (0.2-1.0)
[2017-01-11 18:37] LABS: URINE LEUK ESTERASE Negative (NEGATIVE)
== END 2017-01-11 15:05 | disposition home or self-care (01) ==
LOC: JER 09:18
PROC: 3E033NZ Introduction of Analgesics, Hypnotics, Sedatives into Peripheral Vein, Percutaneous Approach (ICD-10-PCS; principal; 2017-01-11)
DX: R10.84 Generalized abdominal pain (principal); Z85.41 Personal history of malignant neoplasm of cervix uteri
CPT/HCPCS: 36415; 71010-TC; 74177-TC; 80053; 81003; 82272; 83605; 84703; 85025; 85610; 85730; 86850; 86900; 86901; 96374; 99283-25